=== PATIENT | female | born 1975 | race Caucasian/White ===

== ENCOUNTER 2018-12-16 13:26 | Emergency (ER) | payer OTHER ==
[~2018-12-16] VITALS: Ht 170.2 cm; Wt 73.9 kg
[2018-12-16] MEDS ORDERED: KEFLEX500 MG PO (16:23)
[2018-12-16] MEDS ORDERED: NORCO 5-325 TA1 EACH PO (16:23)
[2018-12-16] MEDS ORDERED: ONDANSETRON ODT8 MG PO (16:23)
== END 2018-12-16 16:35 | disposition home or self-care (01) ==
LOC: ED 13:26
DX: R10.32 Left lower quadrant pain (principal); Z90.710 Acquired absence of both cervix and uterus; Z90.49 Acquired absence of other specified parts of digestive tract; Z88.2 Allergy status to sulfonamides
CPT/HCPCS: 80053; 81001; 82150; 83690; 85025; 96361; 96374; 96375; 99284-25; J1885; J2405; J7030

== ENCOUNTER 2019-11-19 11:26 | Emergency (ER) | payer OTHER ==
[~2019-11-19] VITALS: Ht 170.2 cm; Wt 74.8 kg
[~2019-11-19 11:26] MED LIST: KEFLEX500 MG PO; NORCO 5-325 TA1 EACH PO; ONDANSETRON ODT8 MG PO
[2019-11-19] MEDS ORDERED: ALLER-TEC10 MG PO (11:48)
--- NOTE | 2019-11-20 17:07 | EKG ---
[facility] [address] [facility] [place], [place] [address] Signed Normal sinus rhythm Normal ECG No previous ECGs available Confirmed by QUINTEN AGUILERA MD ([id number] on 11/20/2019 5:07:15 PM Electronically Signed By: QUINTEN AGUILERA MD 11/20/19 1707 PATIENT NAME: JOSTIN CUEVA Electrocardiogram DATE OF : 75 PHYSICIAN: QUINTEN AGUILERA MD REPORT #: [id number] REPORT IS CONFIDENTIAL AND NOT TO BE RELEASED WITHOUT AUTHORIZATION
== END 2019-11-19 14:23 | disposition home or self-care (01) ==
LOC: ED 11:26
DX: R07.9 Chest pain, unspecified (principal)
CPT/HCPCS: 71046; 80053; 83735; 84484; 85025; 93005; 93010; 99285-25